=== PATIENT | female | born 1990 | race Caucasian/White ===

== ENCOUNTER 2020-08-02 19:46 | Emergency (ER) | payer SELFPAY ==
[~2020-08-02] VITALS: Ht 172.7 cm; Wt 71.5 kg
[2020-08-02 20:06] VITALS: BP 121/77
[2020-08-02 20:08] LABS: BACTERIA,URINE NEGATIVE /HPF; BILIRUBIN,URINE NEGATIVE (NEGATIVE); CLARITY,URINE CLEAR; COLOR,URINE STRAW; GLUCOSE, URINE (UA) NEGATIVE (NEGATIVE); KETONES,URINE NEGATIVE (NEGATIVE); LEUKOCYTE ESTERASE ,URINE NEGATIVE (NEGATIVE); NITRITE,URINE NEGATIVE (NEGATIVE); PH,URINE 6.5 (5-9); PROTEIN,URINE NEGATIVE (NEGATIVE); WBC,URINE RARE /HPF
[2020-08-02] MEDS ORDERED: RX-CYCLOBENZAPRINE 10 MG (FLEXERIL) TAB PPK#3 PO STA (20:33)
[2020-08-02] MEDS ORDERED: CYCL10TA9 PO (20:33)
--- NOTE | 2020-08-02 20:33 | ED General ---
General Chief Complaint: Abdominal/GI Problems Stated Complaint: ABDOMINAL PAIN Nursing Sepsis Screen: No Definite Risk Source of Information: Patient History of Present Illness Date Seen by Provider: Aug 02, 2020 Time Seen by Provider: 19:51 Initial Comments 30-year-old female presenting with complaints of epigastric pain. She states that she was at work and bent over to put some cups under a cabinet. When she did that she had sudden sharp epigastric pain. she denies any direct trauma to her abdomen or chest. She has no nausea or vomiting. After the pain came on she became short of breath and anxious. Then she became dizzy and lightheaded. This lasted for several minutes. She is feeling better currently. She had to leave work because of how she was feeling. She has been huffing nitrous and smoking marijuana recently. She also has a history of hepatitis C, tobacco use, anxiety. She denies having symptoms like this in the past. Allergies and Home Medications Allergies Coded Allergies: No Known Drug Allergies (Unverified , 08/02/20) Home Medications Cyclobenzaprine HCl 10 Mg Tablet, 10 MG PO Q8H PRN for SPASMS Prescribed by: SHANEKA MICHAEL on 08/02/202032 Patient Home Medication List Home Medication List Reviewed: Yes Review of Systems Review of Systems Constitutional: No chills, No fever EENTM: no symptoms reported Respiratory: see HPI Cardiovascular: see HPI Gastrointestinal: abdominal pain (epigastric abdominal pain); No nausea, No vomiting Genitourinary: no symptoms reported Musculoskeletal: muscle cramps (epigastric) Skin: no symptoms reported Psychiatric/Neurological: Anxiety Past Yyjjidb-Kitclf-Oegyov Hx Past Med/Social Hx: Reviewed Nursing Past Med/Soc Hx Patient Social History Alcohol Use: Denies Use Recreational Drug Use: Yes Smoking Status: Current Everyday Smoker 2nd Hand Smoke Exposure: No Recent Foreign Travel: No Contact w/Someone Who Travel: No Recent Infectious Disease Expo: No Recent Hopitalizations: No (hep c positive) Physical Abuse: No Sexual Abuse: No Mistreated: No Fear: No Seasonal Allergies Seasonal Allergies: No Past Medical History Surgeries: Yes (wisdom teeth) Gallbladder Respiratory: No Cardiac: No Neurological: Yes Neuropathy Genitourinary: No Gastrointestinal: No Musculoskeletal: No Endocrine: No HEENT: No Cancer: No Psychosocial: Yes Anxiety, Personality Disorder Integumentary: No Blood Disorders: No Physical Exam Vital Signs Vital Signs - First Documented 08/02/20 20:06 Temp 37.0 Pulse 91 Resp 15 B/P (MAP) 121/77 (92) Pulse Ox 98 O2 Delivery Room Air Capillary Refill : Less Than 3 Seconds Height, Weight, BMI Height: '" Weight: lbs. oz. kg; 23.00 BMI Method: General Appearance: WD/WN, Anxious HEENT: PERRL/EOMI, Pharynx Normal Neck: Non Tender, Supple Respiratory: Chest Non Tender, Lungs Clear, Normal Breath Sounds, No Accessory Muscle Use, No Respiratory Distress Cardiovascular: Regular Rate, Rhythm, No Murmur, Normal Peripheral Pulses Gastrointestinal: Normal Bowel Sounds, No Pulsatile Mass, Soft; No Guarding, No Mass, No Rebound; Tenderness (epigastric) Rectal: Deferred Extremity: Normal Capillary Refill, No Pedal Edema Neurologic/Psychiatric: Alert, Oriented x3, release of information specialist II-XII Norm as Tested Skin: Normal Color, Warm/Dry Progress/Results/Core Measures Suspected Sepsis Recent Fever Within 48 Hours: No Infection Criteria Present: None New/Unexplained Altered Menta: No Sepsis Screen: No Definite Risk SIRS Temperature: Pulse: 91 Respiratory Rate: 15 Blood Pressure 121 /77 Mean: 92 Results/Orders Lab Results Laboratory Tests Test 08/02/20 20:00 Range/Units Urine Color STRAW Urine Clarity CLEAR Urine pH 6.5 5-9 Urine Specific [place] <=1.005 1.016-1.022 Urine Protein NEGATIVE NEGATIVE Urine Glucose (UA) NEGATIVE NEGATIVE Urine Ketones NEGATIVE NEGATIVE Urine Nitrite NEGATIVE NEGATIVE Urine Bilirubin NEGATIVE NEGATIVE Urine Urobilinogen 0.2 < = 1.0 MG/DL Urine Leukocyte Esterase NEGATIVE NEGATIVE Urine RBC (Auto) NEGATIVE NEGATIVE Urine RBC NONE /HPF Urine WBC RARE /HPF Urine Squamous Epithelial Cells 5-10 /HPF Urine Crystals NONE /LPF Urine Bacteria NEGATIVE /HPF Urine Casts NONE /LPF Urine Mucus NEGATIVE /LPF Urine Culture Indicated NO My Orders Orders - SHANEKA MICHAEL MD Ua Culture If Indicated (08/02/20 19:54) Urine Bedside (08/02/20 19:54) Rx-Cyclobenzaprine Tablet (Rx-Flexeril T (08/02/20 20:33) Vital Signs/I&O 08/02/20 20:06 Temp 37.0 Pulse 91 Resp 15 B/P (MAP) 121/77 (92) Pulse Ox 98 O2 Delivery Room Air Capillary Refill : Less Than 3 Seconds Blood Pressure Mean: 92 Progress Note : Progress Note UA clear and negative . Reassured pt that exam and vital signs appear stable and do not show any acute significant abnormality. Advised pt to quit Huffing Nitrous as it can have an effect on muscles and cause spasms or heart arrhythmia or lung damage. Try treating for muscle spasm at this point with her still having pain to palpation and she had onset with bending over and stretching to place cups in a cabinet. Check with clinic for continued concerns Departure Impression Primary Impression: Epigastric abdominal pain Additional Impressions: Spasm of abdominal muscles Shortness of breath Anxiety about health Disposition: HOME, SELF-CARE Condition: Stable Departure-Patient Inst. Decision time for Depature: 20:33 Referrals: NO,LOCAL PHYSICIAN (PCP) Primary Care Physician [facility] [place] Patient Instructions: Muscle Spasm ED, Shortness of Breath, Adult ED Add. Discharge Instructions: Avoid using drugs that are not prescribed for you to take. Try using a heating pad to help with muscle spasm and strain to epigastric area. Apply to the area for 15-20 minutes every few hours. May alternate with ice. Check back with clinic for continued concerns. All discharge instructions reviewed with patient and/or family. Voiced understanding. Scripts Cyclobenzaprine HCl (Cyclobenzaprine HCl) 10 Mg Tablet 10 MG PO Q8H PRN for SPASMS for 5 Days, #15 TAB 0 Refills Prov: SHANEKA MICHAEL MD 08/02/20 Work/School Note: Work Release Form Date Seen in the Emergency Department: Aug 02, 2020 Return to Work: Aug 03, 2020 Restrictions: No Restrictions SHANEKA MICHAEL MD Aug 02, 2020 20:33
== END 2020-08-02 20:39 | disposition home or self-care (01) ==
LOC: ER FS 19:52
DX: R10.13 Epigastric pain (principal); M62.838 Other muscle spasm; R06.02 Shortness of breath; F41.9 Anxiety disorder, unspecified; F17.200 Nicotine dependence, unspecified, uncomplicated
CPT/HCPCS: 81000; 84703; 99282

== ENCOUNTER 2021-07-22 21:19 | Emergency (ER) | payer SELFPAY ==
[~2021-07-22] VITALS: Ht 170 cm; Wt 68.1 kg
[~2021-07-22 21:19] MED LIST: CYCL10TA25 PO
[2021-07-22 21:20] VITALS: BP 104/61
--- OUTSIDE RECORDS SUMMARY | 2021-07-22 21:25 | XMS REPORT | Clinical Summary ---
Author Author [facility] Organization [facility] Address Unknown Phone Unavailable Care Team Providers Care Social Media Director Name Role Phone PCP Unavailable Allergies Not on File Medications Not on file Active Problems Not on file Social History Date Tobacco Use Types Packs/Day Years Used Never Assessed Sex Assigned at Date Recorded Not on file Last Filed Vital Signs Not on file Plan of Treatment Not on file Results Not on filefrom Last 3 Months
--- NOTE | 2021-07-22 21:29 | ED General ---
General Stated Complaint: OVERDOSE Source of Information: Patient, EMS History of Present Illness Date Seen by Provider: Jul 22, 2021 Time Seen by Provider: 21:19 Initial Comments 31-year-old female presenting by EMS with complaints of feeling "weird" after smoking marijuana and taking 400 mg of trazodone and 6 mg of risperidone. She states that she was just trying to go to sleep. She takes those medications routinely. She adamantly denies any suicidal ideation. She denies trying to hurt herself or kill herself by taking these medicines. She was concerned about having cramping in her muscles and toes after taking the medications. She took everything a few hours prior to arriving in the emergency department. She is feeling drowsy and groggy. She follows with [facility][1] for her medications. Timing/Duration: 1-3 Hours Severity: Moderate Modifying Factors: worse with Medication Associated Systoms: No Chest Pain, No Cough, No Diaphoresis, No Fever/Chills, No Headaches, No Loss of Appetite, No Malaise, No Nausea/Vomiting, No Seizure, No Shortness of Air, No Syncope, No Weakness Allergies and Home Medications Allergies Coded Allergies: No Known Drug Allergies (Unverified , 08/02/20) Patient Home Medication List Home Medication List Reviewed: Yes Cyclobenzaprine HCl (Cyclobenzaprine HCl) 10 Mg Tablet, 10 MG PO Q8H PRN for SPASMS Prescribed by: SHANEKA MICHAEL on 08/02/202032 Review of Systems Review of Systems Constitutional: No chills, No fever EENTM: no symptoms reported Respiratory: no symptoms reported Cardiovascular: no symptoms reported Gastrointestinal: no symptoms reported Genitourinary: No dysuria; other (States that she does not have menstrual cycles because of taking the risperidone) Musculoskeletal: see HPI, muscle cramps Skin: No rash Psychiatric/Neurological: Anxiety, Emotional Problems, Other (Denies suicidal ideation or homicidal ideation) Past Attdgpb-Xnoqbp-Xkieac Hx Patient Social History Use of E-Cig and/or Vaping dev: Yes Substance use?: Yes Substance type: Marijuana Seasonal Allergies Seasonal Allergies: No Past Medical History Surgery/Hospitalization HX: Schizoaffective disorder, borderline personality disorder Surgeries: Yes (wisdom teeth) Gallbladder Respiratory: No Cardiac: No Neurological: Yes Neuropathy Genitourinary: No Gastrointestinal: No Musculoskeletal: No Endocrine: No HEENT: No Cancer: No Psychosocial: Yes Anxiety, Personality Disorder Integumentary: No Blood Disorders: No Physical Exam Vital Signs Vital Signs - First Documented 07/22/21 21:20 Temp 36.6 Pulse 105 Resp 14 B/P (MAP) 104/61 (75) Pulse Ox 100 O2 Delivery Room Air Capillary Refill : Height, Weight, BMI Height: '" Weight: lbs. oz. kg; 23.00 BMI Method: General Appearance: Anxious HEENT: PERRL/EOMI, Pharynx Normal Neck: Full Range of Motion, Normal Inspection, Non Tender, Supple Respiratory: Chest Non Tender, Lungs Clear, Normal Breath Sounds, No Accessory Muscle Use, No Respiratory Distress Cardiovascular: Regular Rate, Rhythm, Normal Peripheral Pulses Gastrointestinal: Normal Bowel Sounds, No Pulsatile Mass, Non Tender, Soft Rectal: Deferred Extremity: Normal Capillary Refill, Normal Inspection, No Pedal Edema Neurologic/Psychiatric: Alert, Oriented x3, dot net architect II-XII Norm as Tested Skin: Normal Color, Warm/Dry Progress/Results/Core Measures Suspected Sepsis SIRS Temperature: Pulse: Respiratory Rate: Laboratory Tests 07/22/21 21:45: White Blood Count 10.7 Blood Pressure / Mean: Laboratory Tests 07/22/21 21:45: Creatinine 0.74, Platelet Count 310, Total Bilirubin 0.2 Results/Orders Lab Results Laboratory Tests Test 07/22/21 00:44 07/22/21 21:45 Range/Units Urine Color YELLOW Urine Clarity CLEAR Urine pH 6.0 5-9 Urine Specific [place] 1.010 L 1.016-1.022 Urine Protein NEGATIVE NEGATIVE Urine Glucose (UA) NEGATIVE NEGATIVE Urine Ketones NEGATIVE NEGATIVE Urine Nitrite NEGATIVE NEGATIVE Urine Bilirubin NEGATIVE NEGATIVE Urine Urobilinogen 0.2 < = 1.0 MG/DL Urine Leukocyte Esterase NEGATIVE NEGATIVE Urine RBC (Auto) NEGATIVE NEGATIVE Urine RBC NONE /HPF Urine WBC RARE /HPF Urine Squamous Epithelial Cells NONE /HPF Urine Crystals NONE /LPF Urine Bacteria TRACE /HPF Urine Casts NONE /LPF Urine Mucus SMALL H /LPF Urine Culture Indicated NO Urine Opiates Screen NEGATIVE NEGATIVE Urine Oxycodone Screen NEGATIVE NEGATIVE Urine Methadone Screen NEGATIVE NEGATIVE Urine Propoxyphene Screen NEGATIVE NEGATIVE Urine Barbiturates Screen NEGATIVE NEGATIVE Ur Tricyclic Antidepressants Screen NEGATIVE NEGATIVE Urine Phencyclidine Screen NEGATIVE NEGATIVE Urine Amphetamines Screen POSITIVE H NEGATIVE Urine Methamphetamines Screen POSITIVE H NEGATIVE Urine Benzodiazepines Screen NEGATIVE NEGATIVE Urine Cocaine Screen NEGATIVE NEGATIVE Urine Cannabinoids Screen POSITIVE H NEGATIVE White Blood Count 10.7 4.3-11.0 10^3/uL Red Blood Count 4.12 3.80-5.11 10^6/uL Hemoglobin 13.2 11.5-16.0 g/dL Hematocrit 38 35-52 % Mean Corpuscular Volume 93 80-99 fL Mean Corpuscular Hemoglobin 32 25-34 pg Mean Corpuscular Hemoglobin Concent 35 32-36 g/dL Red Cell Distribution Width 11.4 10.0-14.5 % Platelet Count 310 130-400 10^3/uL Mean Platelet Volume 10.2 9.0-12.2 fL Immature Granulocyte % (Auto) 0 % Neutrophils (%) (Auto) 70 42-75 % Lymphocytes (%) (Auto) 16 12-44 % Monocytes (%) (Auto) 12 0-12 % Eosinophils (%) (Auto) 2 0-10 % Basophils (%) (Auto) 1 0-10 % Neutrophils # (Auto) 7.5 1.8-7.8 X 10^3 Lymphocytes # (Auto) 1.7 1.0-4.0 X 10^3 Monocytes # (Auto) 1.2 H 0.0-1.0 X 10^3 Eosinophils # (Auto) 0.2 0.0-0.3 10^3/uL Basophils # (Auto) 0.1 0.0-0.1 10^3/uL Immature Granulocyte # (Auto) 0.0 0.0-0.1 10^3/uL Sodium Level 138 135-145 MMOL/L Potassium Level 4.6 3.6-5.0 MMOL/L Chloride Level 102 98-107 MMOL/L Carbon Dioxide Level 27 21-32 MMOL/L Anion Gap 9 5-14 MMOL/L Blood Urea Nitrogen 10 7-18 MG/DL Creatinine 0.74 0.60-1.30 MG/DL Estimat Glomerular Filtration Rate 93 BUN/Creatinine Ratio 14 Glucose Level 99 70-105 MG/DL Calcium Level 9.6 8.5-10.1 MG/DL Corrected Calcium 9.5 8.5-10.1 MG/DL Magnesium Level 1.9 1.6-2.4 MG/DL Total Bilirubin 0.2 0.1-1.0 MG/DL Aspartate Amino Transf (AST/SGOT) 10 5-34 U/L Alanine Aminotransferase (ALT/SGPT) 9 0-55 U/L Alkaline Phosphatase 68 40-136 U/L Total Protein 6.5 6.4-8.2 GM/DL Albumin 4.1 3.2-4.5 GM/DL Serum Test, Qualitative NEGATIVE NEGATIVE Salicylates Level < 0.3 L 5.0-20.0 MG/DL Acetaminophen Level < 10 L 10-30 UG/ML Serum Alcohol < 10 <10 MG/DL My Orders Orders - SHANEKA MICHAEL MD Ua Culture If Indicated (07/22/21 21:38) Cbc With Automated Diff (07/22/21:38) Comprehensive Metabolic Panel (07/22/21) Alcohol (07/22/21:) Drug Screen Stat (Urine) (07/22/21:38) Acetaminophen (07/22/21:38) Salicylate (07/22/21:38) Ekg Tracing (07/22/21:38) Ed Iv/Invasive Line Start (07/22/21:38) Monitor-Rhythm Ecg Trace Only (07/22/21:38) Hcg,Qualitative Serum (07/22/21:38) Magnesium (07/22/21:38) Ns Iv 1000 Ml (Sodium Chloride 0.9%) (07/22/21 21:38) Lorazepam Injection (Ativan Injection) (07/22/21 22:10) Orphenadrine Inj (Ed Only) (Norflex Inje (07/22/21 22:10) Ketorolac Injection (Toradol Injection) (07/22/21 22:10) Ns Iv 1000 Ml (Sodium Chloride 0.9%) (07/22/21 22:10) Ns Iv 1000 Ml (Sodium Chloride 0.9%) (07/22/21 23:39) Vital Signs/I&O 07/22/21 21:20 Temp 36.6 Pulse 105 Resp 14 B/P (MAP) 104/61 (75) Pulse Ox 100 O2 Delivery Room Air Capillary Refill : Progress Note #1: Progress Note Patient is adamant that she is not suicidal. She was asked multiple times by EMS, myself, nursing staff. Check basic labs as well as medicine drug levels and overdose labs. Contact poison control to see if there is anything needed from the overdose standpoint. Obtain IV access and give IV fluids for hydration and reported muscle cramps. When poison control was called I spoke with JUNIOR Hatch. She advised that the medicines could cause hypotension as well as some tachycardia. With the medicines she could also have seizure activity. They recommended monitoring at least until 11 PM or midnight. Initially was maintaining and doing well then she can be discharged home from a poison control standpoint. Progress Note #2: Progress Note Shortly after starting the IV fluids the patient was hyperventilating and becoming more anxious. She started screaming out to the nurse and staff that she was having severe spasms. She was demanding some medication to help with that. As she was becoming more anxious and worked up she was breathing faster which was contributing to her spasms. Her blood pressure was only running around 100 systolic so while I was ordering her medicine to try and help from an anxiety and spasm standpoint I also gave her an additional bag of fluid. So she had a dose of Ativan 0.5 mg IV for anxiety and muscle spasm, Norflex IV for muscle spasms, Toradol for pain, second liter of IV fluids for hydration. Shortly after these medicines were given she was less anxious and able to rest. Blood pressure was maintaining with the IV fluid hydration. Progress Note #3: Progress Note Labs appear stable without acute significant abnormality to account for her complaint of muscle spasms. Her electrolytes did not appear low or off where they would be causing spasms. She had negative alcohol, acetaminophen, salicylate levels. She has not provided a urine specimen to be able to test for urinalysis or urine drug screen. After the second liter of normal saline finished infusing she had a blood pressure between 88 and 91 systolic. She does wake to voice. We will give 1/3 L of normal saline. Her heart rate is down to 82 in sinus rhythm. She continues to be 100% on room air. Progress Note #4: Time: 00:45 Progress Note Patient was finally able to get up and walk to the bathroom and provide a urine specimen. She appeared to be more calm and cooperative. She had no dizziness or lightheadedness with ambulating to the bathroom. Although she has received 3 L of normal saline for hydration she has continued to have been blood pressure returning 88-90 systolic up to around 100-104. She states that she tends to run low on her blood pressure. Again she had no difficulty ambulating to the bathroom without assistance and awakens easily to voice. 0100 urinalysis demonstrates no acute significant abnormality. Her specific gravity is 1.010. Urine drug screen does show methamphetamines in addition to the marijuana that she admitted to using. This would be consistent with her earlier behavior of anxiety and muscle cramping. Again it was noted that the poison control stated that neither medicine that she had taken extra doses of what caused her to have the muscle cramping and toe curling that she was describing. Progress Note #5: Time: 01:25 Progress Note When reviewing lab findings and discharge plan with patient she became upset that she was told she had Methamphetamines in her system. She said "that's weird. I'm tryng to quit that". When I told her we were going to discharge her as there was nothing dangerous on her labs and she did not have a toxic dose of medicines. She was dehydrated from the Meth and it interacting with her prescription drugs and Marijuana. She again was belligerent and upset stating that she did not know anyone and had no friends or family at all to contact for a ride home. I advised her she could go to the waiting room and rest there and there was a phone she could use to make calls on to get in touch with someone for a ride. Again she was still upset and threw her blanket back off of her and said she did not know anyone and had no phone with her so she did not know anyone's number, so she asked how was she to try calling anyone without their number. Then she became upset that she was being told she would have to be discharged and find a way home on her own. I advised her we had no transportation services here at the ED and there was no Taxi or Uber that I was aware of at this hour. She was raising her voice even more as she demanded to know how we could make her walk home and that we would just kick her out in the cold. However, it is actually over 52 degrees F outside at the time I was talking to her so it was not that cold. She then said that we should not expect her to be able to walk home "in the cold" "after you got me all pumped up on the drugs you put in me". However she was only given 0.5 mg of Ativan over 3 hours earlier along with Norflex and Toradol and 3 Liters of NS. What she had taken on her own was more sedating than what I had ordered for her here in the ED and it still had not made her fall asleep. She said she needed to be allowed to sleep until she felt rested and like she could go home. When I asked how long she thought that might be she said she did not know because of "a ll the drugs you all pumped into me". Advised I would let her rest some as I prepared her discharge papers. Will discharge patient and remove her IV to ensure she does not try to leave with IV in place. She was moved to a bed in overflow room by waiting room so that she could rest until she could remember a friend or family member to come get her, or she decided to start walking home. ECG Initial ECG Impression Date: Jul 22, 2021 Initial ECG Impression Time: 21:34 Initial ECG Rate: 96 Initial ECG Rhythm: Normal Sinus Initial ECG Comparisson: No Previous ECG Available Comment Normal sinus rhythm with a heart rate of 96 bpm. PA interval [address] elevation. QT interval 347 ms with a QTc interval 439 ms. There is no prior tracing available for comparison. Departure Impression Primary Impression: Overdose of trazodone Additional Impressions: Intentional poisoning by risperidone Marijuana abuse Anxiety Muscle spasm Methamphetamine abuse Disposition: 01 HOME, SELF-CARE Condition: Improved Departure-Patient Inst. Decision time for Depature: 01:06 Referrals: NO,LOCAL PHYSICIAN (PCP) Primary Care Physician [facility] Patient Instructions: ALCOHOL AND SUBSTANCE ABUSE, Anxiety, Adult ED, Marijuana Use and Addiction (DC), Methamphetamine, Muscle Spasm ED Add. Discharge Instructions: Take your prescription medicines only as prescribed. Follow-up with [facility][1] about your anxiety and depression and insomnia. You could call the [facility] clinic at [phone] to get established with a primary care provider for follow-up Do not use marijuana or methamphetamines as they can cause you to have difficulty sleeping, dehydration, interact poorly with your prescription medicines. SHANEKA MICHAEL MD Jul 22, 2021 21:29
[2021-07-22] MEDS ORDERED: NS IV 1000 ML 1,000 ML IV STA ×3 (21:38→23:39)
[2021-07-22 21:58] LABS: HEMATOCRIT 38 % (35-52); HEMOGLOBIN 13.2 g/dL (11.5-16.0); MEAN CORPUSCULAR HEMOGLOBIN 32 pg (25-34); MEAN CORPUSCULAR HGB CONC 35 g/dL (32-36); MEAN CORPUSCULAR VOLUME 93 fL (80-99); MEAN PLATELET VOLUME 10.2 fL (9.0-12.2); PLATELET COUNT 310 10^3/uL (130-400); WHITE BLOOD COUNT 10.7 10^3/uL (4.3-11.0)
[2021-07-22 22:01] LABS: BASOPHILS % (AUTO) 1 % (0-10); EOSINOPHILS % (AUTO) 2 % (0-10); LYMPHOCYTES % (AUTO) 16 % (12-44); MONOCYTES % (AUTO) 12 % (0-12); NEUTROPHILS % (AUTO) 70 % (42-75)
[2021-07-22 22:02] LABS: BASOPHILS # (AUTO) 0.1 10^3/uL (0.0-0.1); EOSINOPHILS # (AUTO) 0.2 10^3/uL (0.0-0.3); LYMPHOCYTES # (AUTO) 1.7 X 10^3 (1.0-4.0); MONOCYTES # (AUTO) 1.2 X 10^3 (0.0-1.0); NEUTROPHILS # (AUTO) 7.5 X 10^3 (1.8-7.8)
[2021-07-22] MEDS ORDERED: KETOROLAC 30 MG/ML VIAL IVP STA (22:10)
[2021-07-22] MEDS ORDERED: ORPHENADRINE 60 MG/2 ML (NORFLEX) AMP (ED ONLY) IVP STA (22:10)
[2021-07-22] MEDS ORDERED: LORazepam INJ 2 MG/ML (ATIVAN) VIAL IVP STA (22:10)
[2021-07-22 22:19] LABS: ALANINE AMINOTRANSFERASE 9 U/L (0-55); ALKALINE PHOSPHATASE 68 U/L (40-136); BILIRUBIN,TOTAL 0.2 MG/DL (0.1-1.0); BUN/CREATININE RATIO 14; CALCIUM 9.6 MG/DL (8.5-10.1); CARBON DIOXIDE 27 MMOL/L (21-32); CHLORIDE 102 MMOL/L (98-107); CREATININE SERUM 0.74 MG/DL (0.60-1.30); GFR ESTIMATED 93; GLUCOSE 99 MG/DL (70-105); POTASSIUM 4.6 MMOL/L (3.6-5.0); SODIUM 138 MMOL/L (135-145); TOTAL PROTEIN 6.5 GM/DL (6.4-8.2)
[2021-07-22 22:20] LABS: ACETAMINOPHEN < 10 UG/ML (10-30); ALBUMIN 4.1 GM/DL (3.2-4.5); SALICYLATE < 0.3 MG/DL (5.0-20.0)
[2021-07-23 00:52] LABS: BILIRUBIN,URINE NEGATIVE (NEGATIVE); CLARITY,URINE CLEAR; COLOR,URINE YELLOW; GLUCOSE, URINE (UA) NEGATIVE (NEGATIVE); KETONES,URINE NEGATIVE (NEGATIVE); LEUKOCYTE ESTERASE ,URINE NEGATIVE (NEGATIVE); NITRITE,URINE NEGATIVE (NEGATIVE); PROTEIN,URINE NEGATIVE (NEGATIVE)
[2021-07-23 00:56] LABS: BACTERIA,URINE TRACE /HPF; WBC,URINE RARE /HPF
[2021-07-23 01:01] LABS: AMPHETAMINE SCREEN, URINE POSITIVE (NEGATIVE); BARBITURATE SCREEN URINE NEGATIVE (NEGATIVE); BENZODIAZEPINES SCREEN URINE NEGATIVE (NEGATIVE); CANNABINOID SCREEN, URINE POSITIVE (NEGATIVE); COCAINE SCREEN URINE NEGATIVE (NEGATIVE); METHADONE STAT NEGATIVE (NEGATIVE); METHAMPHETAMINE SCREEN URINE S POSITIVE (NEGATIVE); OPIATE SCREEN URINE NEGATIVE (NEGATIVE); OXYCODONE STAT NEGATIVE (NEGATIVE); PROPOXYPHENE STAT NEGATIVE (NEGATIVE); TRICYCLIC ANTIDEPRESSANTS SCRE NEGATIVE (NEGATIVE)
== END 2021-07-23 01:15 | disposition home or self-care (01) ==
LOC: EDUNIT# 21:19 → ER FS 21:21
DX: T43.211A Poisoning by selective serotonin and norepinephrine reuptake inhibitors, accidental (unintentional), initial encounter (principal); F12.10 Cannabis abuse, uncomplicated; F41.9 Anxiety disorder, unspecified; M62.838 Other muscle spasm; F15.10 Other stimulant abuse, uncomplicated
CPT/HCPCS: 36415; 80053; 80306; 81000; 83735; 84703; 85025; 93041; 99284; G0480 ×3; 80320; 80329